=== PATIENT | male | born 1990 | race Two or more races ===

== ENCOUNTER 2017-05-17 19:37 | Emergency (ER) | payer OTHER ==
[2017-05-17 19:48] VITALS: RESP 18; O2SAT 96
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
[2017-05-17 20:04] VITALS: BP 122/67; PULSE 75; TEMP 98.1
== END 2017-05-17 20:08 | disposition home or self-care (01) ==
LOC: CED 19:37
DX: Z77.21 Contact with and (suspected) exposure to potentially hazardous body fluids (principal)